=== PATIENT | female | born 1955 | race Caucasian/White ===

== ENCOUNTER 2022-06-29 15:49 | Emergency (ER) | payer OTHER ==
[~2022-06-29] VITALS: Ht 162.6 cm; Wt 83.0 kg
[2022-06-29] MEDS ORDERED: SYNTHROID125 MCG PO (16:52)
[2022-06-29] MEDS ORDERED: IRBESARTAN-HCT1 EAC1 PO (16:53)
== END 2022-06-29 18:59 | disposition home or self-care (01) ==
LOC: ER 15:49
DX: I10 Essential (primary) hypertension (principal); E03.9 Hypothyroidism, unspecified

== ENCOUNTER 2024-01-18 08:14 | Outpatient (CLI) | payer OTHER ==
[~2024-01-18 08:14] MED LIST: IRBESARTAN-HCT1 EAC1 PO; SYNTHROID125 MCG PO
== END 2024-01-18 08:20 | disposition home or self-care (01) ==
LOC: TOM 08:14
PROVIDERS: ATTEND Internal Medicine Gastroenterology
DX: K57.30 Diverticulosis of large intestine without perforation or abscess without bleeding (principal)